=== PATIENT | female | born 1995 | race Caucasian/White ===

== ENCOUNTER 2022-08-28 09:30 | Emergency (ER) | payer MEDICAID, SELFPAY ==
[2022-08-28] VITALS (22 sets, daily range): BP systolic 88–128; BP diastolic 56–79; PULSE 65–110; RESP 24; TEMP 36.6–37.1; O2SAT 93–98
--- NOTE | 2022-08-28 09:45 | DI.CT_ITS ---
Exam(s) CT ABDOMEN PELVIS W EXAM: CT ABDOMEN PELVIS W INDICATION: rlq and suprapubic abdominal pain. COMPARISON: No exams were available for comparison TECHNIQUE: FINDINGS: CT examination of the abdomen and pelvis was performed with intravenous infusion of 100 cc of Omnipaq ue 350. Images obtained through the lung bases show some apparent small areas of atelectasis . The liver is unremarkable in appearance. Gallbladder and bile ducts are CT normal. Pancreas appears normal. Spleen is unremarkable in appearance. Adrenals appear normal. The kidneys are unremarkable with no evidence of hydronephrosis, nephrolithiasis, or renal mass.. Ur inary bladder unremarkable. Abdominal aorta is of normal diameter and no major vascular abnormality is seen. No abdominal wall hernia. No abdominal or pelvic adenopathy. There is a 23 millimeter in diameter low-attenuation right ovarian mass consistent with small functio nal cyst. There is trace free fluid in the pelvis. 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 Appendix is normal. There is severe constipation with some associated mild colonic wall thickening a nd pericolonic fat edema particularly in the descending colon, raising the possibility of stercoral c olitis. No small bowel dilatation. Patient reportedly is on methadone therapy and this finding may be secondary to methadone use. IMPRESSION: Possible stercoral colitis secondary to severe constipation. No other significant findings.. RADIATION DOSE DELIVERED: 1,458.32mGy.cm Total DLP 1,458.32mGy.cm Total DLP !Error CTDIvol RADIATION OPTIMIZATION: All CT scans at this facility use at least one of these dose optimization te chniques: automated exposure control; mA and/or kV adjustment per patient size (includes targeted exa ms where dose is matched to clinical indication); or iterative reconstruction.
--- NOTE | 2022-08-28 10:00 | DI.US_ITS ---
Exam(s) US PELVIS TRANSVAGINAL EXAM: US PELVIS TRANSVAGINAL CLINICAL HISTORY: RLQ abd pain, concern for ovarian cyst or torsion TECHNIQUE: Ultrasound performed using standard protocol. COMPARISON: No exams were available for comparison FINDINGS: Pelvic ultrasound was performed transabdominally and transvaginally. Uterus is unremarkable in [facility] and measures 5.7 x 2.9 x 3.7 cm a homogeneous 2-3 millimeter thick endometrial stripe. Left ovary has a normal follicular appearance and measures 15 x 19 x 27 millimeters. Right ovary measures 33 x 24 x 30 millimeters and contains a 23 millimeter in diameter dominant folli kapil or simple cyst. No free fluid identified in the cul-de-sac. IMPRESSION: Presumed small functional right ovarian cyst. Otherwise unremarkable pelvic ultrasound. DATA REPOSITORY:
--- NOTE | 2022-08-28 10:05 | ED.GENADUL_ITS ---
Discharge Plan Disposition Patient Disposition: HOME Condition: Improving Discharge Details Clinical Impression: Ovarian cyst, Constipation Primary Care Provider: Unknown,Unknown ED Provider: Joo Gong Home Meds and New Rx's Prescriptions: New docusate sodium [DulcoEase] 100 mg capsule 100 mg PO DAILY 30 Days Qty: 30 0RF magnesium citrate Solution 300 ml PO ONCE Qty: 296 0RF Rx Instructions: as a single dose Fleet Enema 19-7 gram/118 mL enema 118 ml TN ONCE Qty: 133 0RF Discharge Instructions Instructions: Ovarian Cyst (ED), Constipation (ED) Additional Instructions: Please help with your primary care physician. Please continue to attend clinic. If your clinic has any questions about the medications that we administered today they are free to call the hospital. Here is a brief list of the medications that you received today: IV Ativan, IV Toradol, IV Tylenol, IV fluids Medical Decision Making 27-year-old female currently enrolled in methadone program, presents with recurrent right lower quadrant abdominal pain has been going on for the past 3 days associated with nausea, patient largely inconsolable crying and screaming on arrival, stat bedside ultrasound FAST negative for free intraperitoneal fluid, patient endorses that her last menstrual period was within the last couple of weeks, afebrile, abdomen soft nondistended subjective tenderness in the right lower quadrant, noted to be tachycardic with soft blood pressure, records from [facility] visit yesterday show normal heart rate and normal blood pressure at that visit elevated white blood cell count of 12.23+ blood in urine negative for nitrite and leuk esterase, trace ketones no glucose CT showing small renal cyst as well as constipation, will place IV line will administer fluids antiemetics analgesia and anxiolysis, will perform [id number] test urinalysis, have ordered stat CT abdomen pelvis as well as pelvic ultrasound. Must consider appendicitis versus ovarian torsion versus ovarian cyst versus versus colitis versus enteritis. Screening labs imaging reassessment discharge pending labs and imaging. Patient's Sister Li can be contacted at [phone] 14: 27 patient resting comfortably feeling much better after IV Tylenol. Evidence of large stool burden likely related to methadone use, right ovarian cyst without evidence of ovarian torsion. Patient nonperitoneal nontoxic. Home care instructions and return precautions to be given. Will be started on bowel regimen. HPI General Date/Time Provider Initiated Documentation: 08/28/22 09:41 . HPI Narrative: 27-year-old female currently on methadone, presents with abdominal pain right lower quadrant over the last 2 days, severe in nature associate with nausea, evaluated [facility] emergency department had blood work and CT scan which revealed constipation. Was discharged home. Worsening pain today. History and physical limited by amount of discomfort and patient cooperation, collateral information obtained from records at [facility] as well as sister Wendy at bedside phone number [phone] Related Data Home Medications Medication Instructions Recorded Confirmed docusate sodium 100 mg capsule 100 mg PO DAILY 30 days #30 caps 08/28/22 (DulcoEase) magnesium citrate 300 ml PO ONCE #296 mL 08/28/22 sodium phosphates 19 gram-7 118 ml TN ONCE #133 mL 08/28/22 gram/118 mL enema (Fleet Enema) Previous Rx's Medication Instructions Recorded docusate sodium 100 mg capsule 100 mg PO DAILY 30 days #30 caps 08/28/22 (DulcoEase) magnesium citrate 300 ml PO ONCE #296 mL 08/28/22 sodium phosphates 19 gram-7 118 ml TN ONCE #133 mL 08/28/22 gram/118 mL enema (Fleet Enema) General Stated Complaint: Abd Prob ANNELIESE: 3 Review of Systems Narrative: Review of Systems Constitutional: negative Eyes: negative ENT: negative Cardiovascular: negative Respiratory: negative Gastrointestinal: Abdominal pain : negative Musculoskeletal: negative Skin: negative Neurologic: negative Psych: negative PFSH All Active Problems (Updated 08/28/22 @ 14:31 by Joo Gong MD) Ovarian cyst (Acute) Constipation (Acute) Social History Smoking/Tobacco Use Status: Current every day Tobacco Type: e-cigarettes Smoking risk assessment performed?: Yes Alcohol Intake: current Alcohol Intake frequency: holidays/special occasions only Substance use type: former substance user, heroin and IV drugs Do you feel safe at home: Yes Exam Narrative Exam Narrative: Physical Examination General: alert, awake, cooperative, screaming, crying HEENT: normocephalic, atraumatic; PERRL, EOM intact, conjunctiva normal; no nasal discharge; moist mucous membranes, oral and pharyngeal mucosa normal, tolerating secretions Neck: supple, trachea midline; full ROM Chest: normal to inspection Respiratory: normal respiratory effort, speaking in full sentences, clear to auscultation, no wheezing, rales or rhonchi Cardiac: regular rate, regular rhythm, S1S2 intact, no murmurs rubs or gallops GI: abdomen soft, non-tender, non-distended; no palpable mass or hepatosplenomegaly Skin: no lesions, rashes or trauma appreciated Neuro: AAOx3, normal speech, moving all extremities Psych: Appropriate mood and affect Course Vital Signs Vital signs: Vital Signs Temperature 37.1 C 08/28/22 09:36 Pulse 110 H 08/28/22 09:36 Respiratory Rate 24 08/28/22 09:36 Blood Pressure 91/61 L 08/28/22 09:36 Pulse Oximetry 97 08/28/22 09:36 Temperature 37.1 C 08/28/22 09:36 Temperature Source Temporal Artery Scan 08/28/22 09:36 Pulse 110 H 08/28/22 09:36 Respiratory Rate 24 08/28/22 09:36 Blood Pressure 91/61 L 08/28/22 09:36 Blood Pressure Position Supine 08/28/22 09:36 Pulse Oximetry 97 08/28/22 09:36 Oxygen Delivery Method Room Air 08/28/22 09:36 Oxygen Flow Rate 0 08/28/22 09:36 Pain Level 10 08/28/22 09:36
[2022-08-28] MEDS: LORazepam 20 MG/10 ML VIAL IVP (11:00)
[2022-08-28] MEDS: Ketorolac 15 MG/ML VIAL IVP (11:00)
[2022-08-28] MEDS: Ondansetron 4 MG/2 ML VIAL IVP (11:09)
[2022-08-28] MEDS: Normal Saline 1,000 ML 1000 ML IV (11:09)
[2022-08-28 11:33] LABS: Abs Immature Grans 0.09 10^3/uL (0.0-0.06); Absolute Basophil Count 0.03 10^3/uL (0.0-0.2); Absolute Eosinophil Count 0.02 10^3/uL (0.0-0.7); Absolute Lymphocyte Count 1.28 10^3/uL (1.2-3.4); Absolute Monocyte Count 0.74 10^3/uL (0.1-0.8); Basophils % 0.2; Eosinophils % 0.1; HCT 42.4 % (36.0-46.0); HGB 14.1 g/dL (11.2-15.7); Immature Grans % 0.5; Lymphocytes % 7.8; MCH 30.2 pg (27.0-33.0); MCHC 33.3 % (32.0-36.0); MCV 91 fL (80-95); MPV 9.8 fL (8.0-11.0); Monocytes % 4.5; Neutrophils % 86.9; Platelet Count 423 10^3/uL (130-400); RBC 4.67 10^6/uL (3.93-5.22); RDW 11.9 % (11.7-14.6); RDW-SD 39.6 fL; WBC 16.46 10^3/uL (4.4-10.8)
--- NOTE | 2022-08-28 12:09 | NUR.NOTE ---
Nursing Note: PT UNABLE TO URINATE D/T PAIN, STRAIGHT CATH FOR UA, BROWN COLORED URINE, -PREG, PROVIDER AWARE.
[2022-08-28 12:21] LABS: Bilirubin Large (Negative); Blood Negative (Negative); Clarity Clear (Clear); Glucose Negative (Negative); Ketones 40 mg/dL (Negative); Leukocyte Esterase Negative (Negative); Nitrite Negative (Negative); Specific Gravity >= 1.030 (1.005-1.025); pH 5.5 (5-8)
[2022-08-28 12:21] LABS: ALT 24 U/L (14-59); AST 22 U/L (15-37); Albumin 3.2 g/dL (3.4-5.0); Alkaline Phosphatase 87 U/L (46-116); Anion Gap 9.7 mmol/L (3-11); BUN 20 mg/dL (7-18); Bilirubin, Total 0.4 mg/dL (0.2-1.0); CO2 25.3 mmol/L (21.0-32.0); CREATININE 0.8 mg/dL (0.55-1.02); Calcium 9.1 mg/dL (8.5-10.1); Chloride 102 mmol/L (98-107); Estimated GFR 102.22 (mL/min/1.73m2); Glucose 113 mg/dL (74-106); Lipase 36 U/L (73-393); Potassium 3.8 mmol/L (3.5-5.1); Sodium 137 mmol/L (136-145)
[2022-08-28 12:26] LABS: *AMPHETAMINES SCREEN URINE Negative (Negative); *BARBITURATES SCREEN URINE Negative (Negative); *BENZODIAZEPINES SCREEN URINE Negative (Negative); Cannabinoids THC Negative (Negative); Cocaine Screen,Urine Negative (Negative); METHADONE URINE SCREEN Positive (Negative); OPIATES URINE SCREEN Negative (Negative)
[2022-08-28 12:27] LABS: Tricyclic Antidepressants Positive (Negative)
[2022-08-28 12:28] LABS: Bacteria Few HPF (Negative); C & S Indicated? No; Casts Negative LPF (Negative); Crystals Negative HPF (Negative); Epithelial Cells Few HPF (Negative); Mucus Heavy (Negative); Other Cells Negative (Negative); RBC Negative HPF (0-2); WBC 0-2 HPF (0-5)
[2022-08-28] MEDS: ACETAMINOPHEN 1,000 MG/100 ML BTL 400 MG IVPB (12:45)
--- NOTE | 2022-08-28 13:20 | NUR.NOTE ---
Nursing Note: PT RESTING WITH EYES CLOSED S/P IV TYLENOL, PREVIOUSLY CRYING OUT IN PAIN, CONT. TO MONITOR.
[2022-08-28] MEDS: Omnipaque 350 MG/ML 100 ML BTL IJ (14:05)
[2022-08-28] MEDS: Normal Saline Flush 10 ML SYR IVP (14:06)
== END 2022-08-28 15:13 | disposition home or self-care (01) ==
PROVIDERS: Emergency Provider Emergency Medicine
DX: N83.201 Unspecified ovarian cyst, right side (principal); K59.00 Constipation, unspecified; R00.0 Tachycardia, unspecified; N28.1 Cyst of kidney, acquired; F17.290 Nicotine dependence, other tobacco product, uncomplicated
CPT/HCPCS: 80053; 80307; 81025; 83690; 96361; 96374; 96375; 99285; 74177; 76830; 76856; 81003; 81015; 85025; 99284; J0131; J1885; J2405; J3490